=== PATIENT | male | born 1935 | race Two or more races ===

== ENCOUNTER 2024-10-01 20:03 | Emergency (ER) | payer OTHER ==
[~2024-10-01] VITALS: Ht 185.4 cm; Wt 77.2 kg
[2024-10-01 21:17] LABS: Basophils # (auto) 0 10 ^3/uL (0-0.2); Basophils % (auto) 0.5 % (0.0-2.0); Eosinophils # (auto) 0 10 ^3/uL (0-0.8); Eosinophils % (auto) 0.2 % (0.0-7.0); Hematocrit 35.4 % (41.0-53.0); Hemoglobin 11.9 g/dL (13.5-17.5); Lymphocytes # (auto) 0.8 10 ^3/uL (0.4-5.4); Lymphocytes % (auto) 19.7 % (10.0-50.0); Mean Corpuscular Hemoglobin 29.9 pg (28.0-32.0); Mean Corpuscular Hgb Conc. 33.5 g/dL (32.0-36.0); Mean Corpuscular Volume 89.4 fL (80.0-100.0); Monocytes # (auto) 0.6 10 ^3/uL (0-1.3); Monocytes % (auto) 14.6 % (0.0-12.0); Neutrophils # (auto) 2.5 10 ^3/uL (1.6-8.6); Nucleated Red Blood Cells % 0.1 %; Platelet Count (auto) 129 10^3/uL (140-450); Red Blood Cells 3.96 10^6/uL (4.5-5.90); Red Cell Distribution Width 14.4 % (11.8-14.3); White Blood Cell 3.9 10^3/uL (4.4-10.8)
[2024-10-01 21:30] LABS: Chloride 109 mmol/L (98-107); Potassium 4.3 mmol/L (3.5-5.1); Sodium 144 mmol/L (136-145)
[2024-10-01 21:31] LABS: Anion Gap 4 (5-15); Calcium 9.8 mg/dL (8.7-10.4); Carbon Dioxide 31 mmol/L (20-31)
[2024-10-01 21:36] LABS: Blood Urea Nitrogen 26 mg/dL (9-23); Glucose 151 mg/dL (74-106)
--- NOTE | 2024-10-01 21:49 | DVH ---
EXAM: XY CHEST PORTABLE TECHNIQUE: Single frontal chest radiograph CLINICAL HISTORY: gen weak COMPARISON: None Findings/Impression: Frontal chest radiograph demonstrates no acute osseous or superficial soft tissue abnormalities. The trachea is midline. The cardiac silhouette and mediastinum are within normal limits. No pneumothorax, pleural effusions, or consolidations.
--- NOTE | 2024-10-01 22:17 | ED.PDOC ---
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 Per EMS report, patient's spouse called after noticing patient getting progressively weaker in addition to having poor fluid intake for the past 3 days. Per EMS, spouse stated she called 911 because the patient has not been able to ambulate. At time of assessment, patient is a poor historian and stated he did not know why he was brought to the ED aside from recalling that his called on his behalf. Patient complains of headache he has been having for the past 3 days. Patient has no reported chest pain, shortness of breath, urinary symptoms, fever, chills, or other associated symptoms. Further Hx cannot be obtained, due to absence of additional family/quality assurance consultant historians, at this time. 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" Surgical History (Other): "brain Sx" Family History Family History: Unknown Social History Smoker: Non-Smoker Alcohol: Occasionally Drugs: Denies Drug Use Lives In: Home Constitutional: denies: chills, diaphoresis, fatigue, fever, malaise, sweats, weakness, others EENTM: denies: blurred vision, double vision, ear bleeding, ear discharge, ear drainage, ear pain, ear ringing, eye pain, eye redness, hearing loss, mouth pain, mouth swelling, nasal discharge, nose bleeding, nose congestion, nose pain, photophobia, tearing, throat pain, throat swelling, voice changes, others Respiratory: denies: cough, hemoptysis, orthopnea, SOB at rest, shortness of breath, SOB with excertion, stridor, wheezing, others Cardiovascular: denies: chest pain, dizzy spells, diaphoresis, Dyspnea on exertion, edema, irregular heart beat, left arm pain, lightheadedness, palpitations, PND, syncope, others Gastrointestinal: reports: poor fluid intake; denies: abdomen distended, abdominal pain, blood streaked bowels, constipated, diarrhea, dysphagia, difficulty swallowing, hematemesis, melena, nausea, poor appetite, rectal bleeding, rectal pain, vomiting, others Genitourinary: denies: burning, dysuria, flank pain, frequency, hematuria, incontinence, penile discharge, penile sore, pain, testicle pain, testicle swelling, urgency, others Neurological: reports: headache, weakness; denies: dizziness, fainting, left sided numbness, left sided weakness, numbness, paresthesia, pre-existing deficit, right sided numbness, right sided weakness, seizure, speech problems, tingling, tremors, others Musculoskeletal: denies: back pain, gout, joint pain, joint swelling, muscle pain, muscle stiffness, neck pain, others Integumetry: denies: bruises, change in color, change in hair/nails, dryness, laceration, lesions, lumps, rash, wounds, others Allergic/Immunocompromised: denies: Difficulty Healing, Frequent Infections, Hives, Itching, others Hematologic/Lymphatic: denies: anemia, blood clots, easy bleeding, easy bruising, swollen glands, others Endocrine: denies: excessive hunger, excessive sweating, excessive thirst, excessive urination, flushing, intolerance to cold, intolerance to heat, unexplained weight gain, unexplained weight loss, others Psychiatric: denies: anxiety, bipolar disorder, depression, hopeless, panic disorder, schizophrenia, sleepless, suicidal, others All Other Systems: Reviewed and Negative Physical Exam General Appearance: No Apparent Distress HEENT: PERRL/EOMI, Other (Dry mucous membranes) Neck: Full Range of Motion, Normal Inspection Respiratory: Lungs Clear, No Accessory Muscle Use, No Respiratory Distress, Normal Breath Sounds Cardiovascular: No JVD, Regular Rate/Rhythm Breast Exam: Deferred Gastrointestinal: Non Tender, Soft Genitalia: Deferred Pelvic: Deferred Rectal: Deferred Extremities: No calf tenderness, Normal range of motion, Non-tender, Pedal edema Neurologic: Alert, Normal Affect, Normal Mood, No Sensory Deficits, Other (Moves all extremities, motor strength 2/5 bilateral lower extremities, 4/5 bilateral upper extremities) Cerebellar Function: NOT DONE Reflexes: NOT DONE Skin: Dry, Normal Color, Warm Lymphatic: NOT DONE Was a procedure done? Was a procedure done?: No EKG EKG : Comments Sinus rhythm, rate 65, normal AK and QRS intervals, QTC prolonged at 571, normal axis, ST depression in leads 1, 2, V2 through V6 Differential Dx Considerations may include: CVA, TIA, intracranial hemorrhage, dehydration/hypovolemia, electrolyte imbalance, cardiac event, viral syndrome, UTI, encephalopathy, among others X-Ray, Labs, Meds, VS Vital Signs Date Time Temp Pulse Resp B/P (MAP) Pulse Ox O2 Delivery O2 Flow Rate FiO2 10/02/24 06:07 Room Air* 0 21 10/02/24 05:00 63 10 149/90 (109) 98 10/01/24 20:20 97.5 65 18 140/74 (96) 99 10/01/24 20:12 65 Lab Test 10/01/24 21:56 10/01/24 20:59 Range/Units Troponin I High Sensitivity 13 13 </=54 ng/L White Blood Count 3.9 L 4.4-10.8 10^3/uL Red Blood Count 3.96 L 4.5-5.90 10^6/uL Hemoglobin 11.9 L 13.5-17.5 g/dL Hematocrit 35.4 L 41.0-53.0 % Mean Corpuscular Volume 89.4 80.0-100.0 fL Mean Corpuscular Hemoglobin 29.9 28.0-32.0 pg Mean Corpuscular Hemoglobin Concent 33.5 32.0-36.0 g/dL Red Cell Distribution Width 14.4 H 11.8-14.3 % Platelet Count 129 L 140-450 10^3/uL Mean Platelet Volume 10.3 6.9-10.8 fL Neutrophils (%) (Auto) 65.0 37.0-80.0 % Lymphocytes (%) (Auto) 19.7 10.0-50.0 % Monocytes (%) (Auto) 14.6 H 0.0-12.0 % Eosinophils (%) (Auto) 0.2 0.0-7.0 % Basophils (%) (Auto) 0.5 0.0-2.0 % Neutrophils # (Auto) 2.5 1.6-8.6 10 ^3/uL Lymphocytes # (Auto) 0.8 0.4-5.4 10 ^3/uL Monocytes # (Auto) 0.6 0-1.3 10 ^3/uL Eosinophils # (Auto) 0 0-0.8 10 ^3/uL Basophils # (Auto) 0 0-0.2 10 ^3/uL Nucleated Red Blood Cells 0.1 % Sodium Level 144 136-145 mmol/L Potassium Level 4.3 3.5-5.1 mmol/L Chloride Level 109 H 98-107 mmol/L Carbon Dioxide Level 31 20-31 mmol/L Anion Gap 4 L 5-15 Blood Urea Nitrogen 26 H 9-23 mg/dL Creatinine 1.30 0.700-1.30 mg/dL Glomerular Filtration Rate Calc 53 >90 mL/min BUN/Creatinine Ratio 20.0 10.0-20.0 Serum Glucose 151 H 74-106 mg/dL Calcium Level 9.8 8.7-10.4 mg/dL B-Type Natriuretic Peptide 58.64 0-100 pg/mL Current Medications Medications (Trade) Dose Ordered Sig/Linda Route Start Time Stop Time Status Last Admin Sodium Chloride 1,000 ml @ 1,000 mls/hr Q1H ONCE IV 10/01/24 21:45 10/01/24 22:44 DC 10/02/24 05:37 Acetaminophen (Tylenol Tablet) 650 mg ONCE ONCE PO 10/02/24 04:15 10/02/24 04:16 DC 10/02/24 05:39 [place] [id number] Ph: [phone] DIAGNOSTIC IMAGING Diagnostic Imaging Report : [id number] Signed PATIENT: LAY ADDISON ACCT: [id number] UNIT: [id number] : 1935 LOC: ER ROOM / BED: / AGE / SEX: 88 / M ADM STATUS: REG ER SERVICE 36 ORDERING PHYSICIAN: AMARI CALDERON MD PROCEDURE(s): CXRP - CHEST PORTABLE REASON: gen weak ORDER NUMBER(s): [id number], ACCESSION NUMBER(s): [id number] EXAM: XY CHEST PORTABLE TECHNIQUE: Single frontal chest radiograph CLINICAL HISTORY: gen weak COMPARISON: None Findings/Impression: Frontal chest radiograph demonstrates no acute osseous or superficial soft tissue abnormalities. The trachea is midline. The cardiac silhouette and mediastinum are within normal limits. No pneumothorax, pleural effusions, or consolidations. ATED BY: ARCHANA MAY DO DICTATED DATE/TIME: 10/01/242146 SIGNED BY: ARCHANA MAY DO SIGNED DATE/TIME: 10/01/242146 CC: X-Ray, Labs, Meds, VS Comment 88 y/o M with Hx of DM II, HLD, HTN, brain hemorrhage status post brain surgery presenting with generalized weakness, decreased ambulation and headache Vitals remarkable for temperature 97.5 Exam remarkable for 4/5 bilateral upper extremity strength and 2/5 bilateral lower extremity strength Sinus rhythm, rate 65, normal AK and QRS intervals, QTC prolonged at 571, normal axis, ST depression in leads 1, 2, V2 through V6 Head CT and chest x-ray unremarkable CBC remarkable for WBC 3.9, hemoglobin 11.9, hematocrit 35.4, platelets 129 Basic metabolic panel remarkable for chloride 109, BUN 26, no other abnormalities of acute significance Two serial troponins negative, BNP normal UA pending Patient treated with the following in the ED: 1 L 0.9 normal saline IV bolus, Tylenol 650mg p.o. On re-evaluation, exam has unchanged and vitals are stable Plan is to admit/transfer the patient for neuro evaluation. Discussed with Dr. Arenas at [facility], requested UA results, add COVID test and lactate. Will arrange for transfer. Time of 1ST Reevaluation: 21:35 Reevaluation 1ST: Unchanged Time of 2ND Reevaluation: 04:02 Reevaluation 2ND: Unchanged Patient Education/Counseling: Diagnosis, Treatment Family Education/Counseling: No Family Present Departure 1 Departure Time of Disposition: 04:02 Impression: Primary Impression: Generalized weakness Additional Impression: Dehydration Disposition: 02 SHORT TERM HOSPITAL Admit to: [facility] Condition: Guarded Critical Care Note Critical Care Time?: No Stability Stability form required: No Heart Score Heart Score: Heart Score Response (Comments) Value History N/A 0 EKG N/A 0 Age N/A 0 Risk Factors N/A 0 Troponin N/A 0 Total 0 I personally scribed for AU WENDY,AMARI T MD ([email or web address]) on 10/01/24 at 22:17. Electronically submitted by Skyler Rodrigues ([email or web address]). AMARI CALDERON MD Oct 01, 2024 22:17
--- NOTE | 2024-10-02 01:23 | DVH ---
EXAM: CT HEAD WITHOUT CONTRAST INDICATION: gen weak TECHNIQUE: CT of the head without intravenous contrast. Radiation Dose : 1. Head: CT Dose: CTDI volume is 55.78 mGy. Dose-length product is 782.61 mGy*cm The dose indicators for CT are the volume Computed Tomography (CT) Dose Index (CTDIvol) and the Dose Length Product (DLP), and are measured in units of mGy and mGy-cm, respectively. These indicators are not patient dose, but values generated from the CT scanner acquisition factors. The report includes radiation exposure data for exposures received during this examination. COMPARISON: None FINDINGS: There is no evidence of acute intracranial hemorrhage, extra-axial collection, mass effect, midline s hift, herniation or hydrocephalus. The ventricles, sulci and cisterns are age appropriate. The keene-white differentiation is intact. Patchy periventricular and subcortical white matter hypoattenuation is nonspecific but may be related to small vessel ischemic disease. The visualized paranasal sinuses and mastoid air cells are clear. Craniotomy defect is seen in the left frontoparietal brain. IMPRESSION: 1. No acute intracranial abnormality. Radiation optimization: All CT scans at this facility use at least one of these dose optimization anoop hniques: automated exposure control mA and/or kV adjustment per patient size (includes targeted exam s where dose is matched to clinical indication) or iterative reconstruction.
[2024-10-02] MEDS: SODIUM CHLORIDE 0.9% 1,000 ML IV ONE (05:37)
[2024-10-02] MEDS: ACETAMINOPHEN 325 MG TAB PO ONE (05:39)
--- NOTE | 2024-10-02 06:33 | ECG ---
[facility] Test Date: 2024-10-01 Test Time: 20:12:31 Pat Name: LAY ADDISON Department: ED Room: Gender: M [employer] Clerk: SUDHA : 1935 Requested By: AMARI NGUYEN Order Number: [id number] Reading MD: Torsten Carver Measurements Intervals [place] Rate: 65 P: 84 GA: 174 QRS: 137 QRSD: 109 T: 31 QT: 549 QTc: 571 Interpretive Statements Sinus rhythm Probable right ventricular hypertrophy Repol abnrm, severe global ischemia (LM/MVD) Prolonged QT interval Electronically Signed On 10-05-2024 17:16:30 PST by Torsten Carver Please click the below link to view image of tracing.
[2024-10-02 07:28] LABS: COVID19 ANTIGEN SOFIA FIA NEGATIVE (NEGATIVE)
[2024-10-02 07:30] VITALS: PULSE 68; RESP 11; O2SAT 96
[2024-10-02 11:31] VITALS: BP 164/92; PULSE 58; RESP 12; TEMP 98.3; O2SAT 96
== END 2024-10-02 11:42 | disposition short-term general hospital (02) ==
LOC: EDBD 20:03 → ER 20:03
DX: E86.0 Dehydration (principal); R53.1 Weakness; E11.9 Type 2 diabetes mellitus without complications; E78.5 Hyperlipidemia, unspecified; I10 Essential (primary) hypertension; Z98.890 Other specified postprocedural states; Z20.822 Contact with and (suspected) exposure to COVID-19
CPT/HCPCS: 36415; 70450; 71045; 80048; 83605; 83735; 83880; 84484; 85025; 87426; 93005; 96360